=== PATIENT | male | born 1950 | race Caucasian/White ===

== ENCOUNTER 2016-07-12 16:49 | Inpatient (IN) ==
--- NOTE | 2016-07-12 17:45 | Emergency Department Note ---
Disposition Clinical Impression: Cholecystitis Disposition: Admitted As Inpatient Condition: Good [facility] - Forms: Work/School Release, ED Satisfaction Letter Time of Disposition: 18:48 Abdominal Pain HPI - General Chief Complaint: ED Abdominal Pain Stated Complaint: abd pain Time Seen by Provider: 07/12/16 17:27 Source: patient, EMS Nursing Notes Reviewed: Yes Vital Signs Reviewed: Yes - History of Present Illness HPI Narrative: Five-day history of right upper quadrant pain. Patient reports nausea and vomiting for the first 3 days. He denies any vomiting at this time. He states he did have fever yesterday but denies one today. He has not tried anything to make the pain go away. The pain is constant. He was sent here from the [facility] to them not having ultrasound capabilities. They had him drink oral contrast prior to his discharge from their facility. Pain Scale: 5 - Related Data Allergies Allergy/AdvReac Type Severity Reaction Status Date / Time No Known Allergies Allergy Verified 07/12/16 18:32 All systems ED: reviewed and negative except as stated. Constitutional: Reports: fever (Yesterday but not today.). Denies: chills, weakness Cardiovascular: Denies: chest pain, edema, syncope Respiratory: Denies: cough, dyspnea Gastrointestinal: Reports: abdominal pain (Right upper quadrant), nausea, vomiting (2 days ago) Genitourinary: Reports: other (Weak stream. Chronic). Denies: urgency, dysuria Musculoskeletal: Denies: back pain Integumentary: Denies: rash Neurological: Denies: headache, weakness, numbness Abdominal Pain PMH - Past Medical History Medical history: Reports: GERD, hyperlipidemia, hypertension, thyroid disease Psychiatric history: Reports: depression - Social History Smoking status: Current every day smoker Alcohol use: Reports: none Drug use: Reports: none Physical Exam - General Limitations: no limitations General appearance: alert, in no apparent distress - Head Head exam: atraumatic, normocephalic, normal inspection - Eye Eye exam: Present: normal appearance, PERRL, EOMI. Absent: scleral icterus - ENT ENT exam: normal exam, normal oropharynx, mucous membranes moist - Neck Neck exam: Present: normal inspection, full ROM, trachea midline - Chest Chest inspection: Present: normal inspection, symmetric chest wall rise - Respiratory Respiratory exam: Present: normal lung sounds bilaterally. Absent: respiratory distress - Cardiovascular Cardiovascular exam: Present: regular rate, normal rhythm, normal heart sounds - Abdominal Exam Abdominal exam: Present: soft, tenderness (RUQ), guarding, normal bowel sounds, other (Patient's exam was limited due to patient size and pain.). Absent: distention, rebound, rigidity, organomegaly - Extremities Exam Extremities exam: Present: normal inspection, full ROM, normal capillary refill. Absent: tenderness, pedal edema - Back Exam Back exam: Present: normal inspection, full ROM. Absent: tenderness - Neurological Exam Neurological exam: Present: alert, oriented X3 - Psychiatric Psychiatric exam: Present: normal affect, normal mood - Skin Skin exam: Present: warm, dry, intact, normal color Course Course Narrative: A shimming sent from the [facility] due to right upper quadrant pain. He states his pain has been present for 5 days. He did have nausea and vomiting for the first 3 days. He denies any nausea vomiting at this time. Patient had lab work done at the [facility]. He did have an elevated white count at 17.7, his AST and ALTs were normal as was his lipase. He did drink oral contrast prior to leaving the [facility]. He states he was supposed to have a CT over there at 25. We will perform a CT line is clear. His is any pain medication at this time. He is tender on his right upper quadrant and guards whenever you palpate his right upper quadrant. - Reevaluation(s) Reevaluation #1: Patient's blood pressure decreased into the 80s systolic. Will give patient a liter bolus. He has no complaints with this pressure. Also begin Zosyn due to patient's white count and increased size of gallbladder wall and stranding noted on CT consistent with acute cholecystitis. Time: 18:24 - Consultations Consultation #1: Spoke with Dr. Chaudhry and person. He is accepting PT in stable condition. Time: 18:41 Vital Signs Temperature 97.3 F L 07/12/16 16:53 Pulse Rate 79 07/12/16 16:53 Respiratory Rate 16 07/12/16 16:53 Blood Pressure 99/56 07/12/16 16:53 O2 Sat by Pulse Oximetry 93 L 07/12/16 16:53 Temperature 97.3 F L 07/12/16 16:53 Pulse Rate 70 07/12/16 18:17 Respiratory Rate 16 07/12/16 18:17 Blood Pressure 92/47 07/12/16 18:17 O2 Sat by Pulse Oximetry 94 L 07/12/16 18:17 Oxygen Delivery Oxygen Delivery Room Air Abdominal Pain - Medical Records Medical records reviewed: Yes I reviewed the patient's medical records. - Lab Data Lab results reviewed: Yes I reviewed the patient's lab results. - Radiology Data Radiology results reviewed: Yes I reviewed the patient's radiology results.
[2016-07-12] MEDS ORDERED: 0.9 % Sodium Chloride 1,000 ML IVC ONE (18:20)
[2016-07-12] MEDS ORDERED: Piperacillin/Tazobactam 4.5 GM in D5% in Water (Mini-Bag+) 100 ML IVPB ONE (18:23)
--- NOTE | 2016-07-12 18:39 | Emergency Department Note ---
Disposition Clinical Impression: Cholecystitis Disposition: Admitted As Inpatient Condition: Good General Adult HPI - General Chief complaint: ED Abdominal Pain Stated complaint: abd pain Time Seen by Provider: 07/12/16 17:27 Source: patient, EMS Limitations: no limitations - History of Present Illness Pain Scale: 5 - Related Data Home Medications Medication Instructions Recorded Confirmed Aspirin 81 mg PO DAILY 07/13/16 07/13/16 Carboxymethylcellulose Sodium 1 drop BOTH EYES QID 07/13/16 07/13/16 [Refresh Tears] Cyanocobalamin (Vitamin B-12) 1,000 mcg SL Q48H 07/13/16 07/13/16 [Vitamin B-12] Finasteride [Proscar] 5 mg PO DAILY 07/13/16 07/13/16 Hydrochlorothiazide 25 mg PO DAILY 07/13/16 07/13/16 Lisinopril [Zestril] 40 mg PO DAILY 07/13/16 07/13/16 Omeprazole 20 mg PO DAILY 07/13/16 07/13/16 Simvastatin [Zocor] 10 mg PO HS 07/13/16 07/13/16 Tamsulosin [Flomax] 0.4 mg PO DAILY 07/13/16 07/13/16 Allergies Allergy/AdvReac Type Severity Reaction Status Date / Time No Known Allergies Allergy Verified 07/13/16 13:32 Constitutional: Reports: fever (Yesterday but not today.). Denies: chills, weakness Cardiovascular: Denies: chest pain, edema, syncope Respiratory: Denies: cough, dyspnea Gastrointestinal: Reports: abdominal pain (Right upper quadrant), nausea, vomiting (2 days ago) Genitourinary: Reports: other (Weak stream. Chronic). Denies: urgency, dysuria Musculoskeletal: Denies: back pain Integumentary: Denies: rash Neurological: Denies: headache, weakness, numbness Past Medical History - Past Medical History Medical history: Reports: GERD, hyperlipidemia, hypertension, thyroid disease Psychiatric history: Reports: depression - Social History Smoking Status: Current every day smoker Smokeless Tobacco Status: No Alcohol use: Reports: none Drug use: Reports: none Physical Exam - General Limitations: no limitations General appearance: alert, in no apparent distress Course - Reevaluation(s) Reevaluation #1: I saw the patient with the resident, Dr. Bernal. I also spoke with the NH physician who saw the patient over there and transferred him here. Patient complains of right upper quadrant abdominal pain. He had a 17,000 white count at the NH. Rest of the labs were okay but they are concerned about cholecystitis given the white count and the physical exam. Here in the department the patient is tender in the right upper quadrant. His vital signs had been pretty good although he did have a couple of low blood pressure readings but he rebounded back to the 113 systolic range with only [address] scan done here shows acute cholecystitis. We put a second line and the patient and are giving him some IV fluids and we have ordered antibiotics for him. We will talk to surgery about management of the patient. Disposition will be based on that consultation. Time: 18:39 Vital Signs Temperature 97.3 F L 07/12/16 16:53 Pulse Rate 79 07/12/16 16:53 Respiratory Rate 16 07/12/16 16:53 Blood Pressure 99/56 07/12/16 16:53 O2 Sat by Pulse Oximetry 93 L 07/12/16 16:53 Temperature 97.5 F L 07/13/16 11:54 Pulse Rate 80 07/13/16 11:54 Respiratory Rate 15 07/13/16 11:54 Blood Pressure 111/66 07/13/16 11:54 O2 Sat by Pulse Oximetry 91 L 07/13/16 11:54 Oxygen Delivery Oxygen Delivery Room Air Attestation Statement - Attestation Attestation: I, Dr. Che, examined this patient [id number] and my medical decision- making was reviewed with Dr. Bernal, Resident Physician. I agree with the documented findings, disposition and treatment plan as described except to the extent set forth below. Please see my progress notes for details.
[2016-07-12] MEDS ORDERED: *HR* Promethazine 25 MG/ML VIAL IVP PRN (19:31)
[2016-07-12] MEDS ORDERED: *HR* HYDROmorphone (PF) 1 MG/ML SYRINGE IVP PRN (19:31)
[2016-07-12] MEDS ORDERED: 0.9 % Sodium Chloride 1,000 ML ONE (19:37)
[2016-07-12] MEDS: 0.9 % Sodium Chloride 1,000 ML IVC SCH (19:40)
--- NOTE | 2016-07-12 19:48 | General Surg History&Physical ---
Date of Encounter: 07/12/16 Time of Encounter: 09:20 History of Present Illness Chief complaint: Acute abdominal pain, acute cholecystitis HPI: Mr. Antonio is a 66 year old male transferred from [facility] urgent care after presenting there with a 5 day history of right upper quadrant abdominal pain with nausea and vomiting. Symptoms became particularly acute in the last 48 hours. Patient presented to the [facility] today in acute distress opting urgent referral to [facility]. Laboratories her white count is 17.7, hemoglobin 15.8, hematocrit 45.9 bilirubin 1.1, alkaline phosphatase 126; other LFTs were normal. CT Completed on arrival, [facility], rolled mild bilateral lung base atelectasis and right middle lobe; diffuse gallbladder wall thickening and mild distention. No calcified stones are seen but significant pericholecystic trending is noted. A duodenal diverticulum is also noted without obvious inflammation. Since arrival in the emergency department the patient has been hypotensive which has responded to IV fluid boluses. Patient has been acutely referred to surgical services for further assessment and intervention Past medical history: Thyroid nodule/goiter; multiple pulmonary nodules of uncertain etiology; depression; hyperlipidemia, hypertension, gastroesophageal reflux disease; prostate enlargement Surgical history: The denies any prior surgeries Allergies: No known drug allergies Medications: Aspirin 81 mg by mouth daily Carboxymethylcellulose 1% ophthalmic gel and drop both eyes 4 times a day for dry eyes Cobalamin 1000 g by mouth every other day Finasteride 5 mg 1 by mouth daily Hydrochlorothiazide 25 mg 1 by mouth daily Lisinopril 40 mg 1 by mouth daily Omeprazole 20 mg 1 by mouth daily Simvastatin 20 mg half tablet daily at bedtime Tamsulosin 0.4 mg 1 by mouth daily at bedtime Social history: is a former smoker; he admits to 2-3 packs per day for over 40 years; he quit approximately 5 years ago. [place] also admits to a history of heavy alcohol use but quit many years ago. He denies any illicit drug use Family history: Noncontributory Physical examination: Elderly who appears older than his stated age, seated comfortably in his hospital bed. He is guarding and readily admits to severe right upper quadrant abdominal tenderness. The patient is afebrile, 97.3 ; pulse 73, respirations 16, blood pressure currently 102/51 but has been as low as 92/47. SPO2 on room air 93-98%. Skin is warm, dry; there was no obvious jaundice Lungs: Clear though inspiratory effort limited by pain on deep inspiration Cardiac: Regular rate, no appreciable murmurs Abdomen: Acutely tender with guarding right upper quadrant. The abdominal guarding limits my examination. The other 3 quadrants without palpable masses or tenderness. No obvious rebound. Bowel sounds hypoactive Extremities: No obvious clubbing cyanosis or edema Impression: 66-year-old referred from [facility] urgent care for further evaluation and treatment of acute right upper quadrant abdominal pain, nausea and vomiting. Patient has radiologic evidence of acute cholecystitis. The patient will be admitted in preparation for surgery in the a.m. Tonight, IV fluids and IV antibiotics will be administered along with pain medication. Aggressive fluid resuscitation and a be necessary, as evident in the emergency department. Once stabilized I plan surgery in the a.m. The patient is a reasonable candidate for laparoscopic cholecystectomy but understands that open cholecystectomy may become necessary. Risks of surgery include hemorrhage, infection, intra-abdominal abscess, bile leak, injury to adjacent ducts, vessels , organs, bowel. Possible respiratory failure/hypoxia/pneumonia as a result of the acute inflammatory changes involving the gallbladder. There are cardiac risks as well. Postcholecystectomy diarrhea is also a possibility. The expressed understanding and is willing to proceed. Consent for surgery has been obtained. Past Med Surg Social Fam HX - Past Medical History Medical history: GERD, hyperlipidemia, hypertension, thyroid disease Psychiatric history: depression - Social History Smoking Status: Current every day smoker Smokeless Tobacco Status: No Alcohol use: none Drug use: none Medications and Allergies Allergies No Known Allergies Allergy (Verified 07/12/16 18:32) Review of Systems All systems PM: A 10-system review of systems was performed and is negative for pertinent findings except as documented above in the HPI. General Surgery Exam Initial Vital Signs Temp Pulse Resp BP Pulse Ox 97.3 F L 79 16 99/56 93 L 07/12/16 16:53 07/12/16 16:53 07/12/16 16:53 07/12/16 16:53 07/12/16 16:53 Results - Labs All other labs normal.
[2016-07-13] MEDS: Piperacillin/Tazobactam 3.375 GM in D5% in Water (Mini-Bag+) 100 ML IVPB SCH ×3 (00:03→23:28)
[2016-07-13] MEDS: 0.9 % Sodium Chloride 1,000 ML IVC SCH ×2 (05:52→20:05)
--- NOTE | 2016-07-13 14:40 | Anesthesia Evaluation PreOp ---
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 History: Other (depression, 03/13: bilat carotid, nonstenotic plaque) Other Medical History: Thyroid (nodule), GERD, Other (bph) Alcohol Use: none Drug use: none Medications and Allergies Aspirin 81 mg PO DAILY 07/13/16 [History] Carboxymethylcellulose Sodium [Refresh Tears] 1 drop BOTH EYES QID 07/13/16 [ History] Cyanocobalamin (Vitamin B-12) [Vitamin B-12] 1,000 mcg SL Q48H 07/13/16 [History ] Finasteride [Proscar] 5 mg PO DAILY 07/13/16 [History] Hydrochlorothiazide 25 mg PO DAILY 07/13/16 [History] Lisinopril [Zestril] 40 mg PO DAILY 07/13/16 [History] Omeprazole 20 mg PO DAILY 07/13/16 [History] Simvastatin [Zocor] 10 mg PO HS 07/13/16 [History] Tamsulosin [Flomax] 0.4 mg PO DAILY 07/13/16 [History] Allergies No Known Allergies Allergy (Verified 07/13/16 13:32) - Meds/Allergy Pre-op Review Medications Reviewed: Yes Allergies Reviewed: Yes Beta Blockers on Current Med List: No Anesthesia Exam Vital Signs/O2 Sat/Glucose, Most Current Temp Pulse Resp BP Pulse Ox 07/13/16 11:54 97.5 F L 80 15 111/66 91 L Height: 1.73 Weight: 91 NPO (# of Hours): >8 <Robert Triplett - Last Filed: 07/13/16 15:24> - Past History Pulmonary History: Smoker (quit 5 years ago, smoked for 40 years) 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 GALVANIZER History: TIA Anesthesia History: Past Anesthesia, Problems (PONV) Alcohol Use: none (quit 15 years ago, history of heavy use) Anesthesia Results - Labs 07/12/2016 Na 138 K 3.4 BUN 33 Cr 1.02 WBC 17.7 HGB 15.8 HCT 45.9 PLT 177 - Imaging Additional studies: 03/28/2015 Echo LVEF 60% mild LV diastolic dysfunction no significant valvular dysfunction Anesthesia Exam Pain Scale: 3 Pain Scale Used: Numeric (1 - 10) - HEENT Pupil (Motor): EOMI Mallampati: II Denture Type: Upper: Complete Oral Opening: Greater than 3 - STRAND GALVANIZER LOC: Oriented STRAND GALVANIZER Motor: Normal RUE, Normal LUE, Normal RLE, Normal LLE, Normal Face STRAND GALVANIZER Sensory: Normal: RUE, LUE, RLE, LLE, Face - Cardiac Rhythm: Regular Murmur: None - Pulmonary Breath Sounds: bilateral Clear Respiratory Effort: Symmetrical Anesthesia Assess/Plan ASA Score: 3 Modified [place] Scale for Level of Consciousness: Cooperative, oriented, and tranquil Anesthetic Plan: General Monitoring Plan: Standard Monitors Recovery Plan: PACU
[2016-07-13] MEDS ORDERED: Bupivacaine/EPI 1:200k 0.25%PF 30 ML VIAL ONE ×2 (14:49→16:13)
[2016-07-13] MEDS ORDERED: *HR* FentaNYL (PF) 100 MCG/2 ML VIAL ONE (15:05)
[2016-07-13] MEDS ORDERED: *HR* Succinylcholine 200 MG/10 ML VIAL IVP ONE (15:05)
[2016-07-13] MEDS ORDERED: *HR* Rocuronium Bromide 50 MG/5 ML VIAL ONE (15:05)
[2016-07-13] MEDS ORDERED: *HR* Propofol 200 MG/20 ML VIAL IVP ONE (15:05)
[2016-07-13] MEDS ORDERED: *HR* HYDROmorphone (PF) 1 MG/ML SYRINGE IVP PRN ×2 (15:54→18:17)
[2016-07-13] MEDS ORDERED: *HR* HYDROmorphone 2 MG/ML SYRINGE ONE (17:14)
[2016-07-13] MEDS ORDERED: Dexamethasone 4 MG/ML VIAL ONE (17:17)
[2016-07-13] MEDS ORDERED: Ondansetron 4 MG/2 ML VIAL ONE (17:17)
[2016-07-13] MEDS ORDERED: Ringers Solution, Lactated 500 ML IVC ONE (17:31)
--- NOTE | 2016-07-13 17:34 | Operative Note ---
Date of procedure: 07/13/16 Pre-op diagnosis: acute cholecystitis Post-op diagnosis: other (acute gangrenous cholecystitis) Procedure: Laparoscopy, open cholecystectomy Implants: 7 mm Dennys-Naqvi drain Complications: None apparent Anesthesia: GETA Local Anesthetics: 0.25% Sensorcaine HCL with Epinephrine 1:200,000 SubQ (cc) ( 50 mL) Surgeon: Santos Chaudhry Estimated blood loss (cc): 400 IV fluids (cc): 2,500 Specimen: gallbladder Condition: stable Disposition: PACU Procedure in Detail: The patient was brought to the operating room where he was placed supine upon the operating table. The patient was appropriately identified as to person and procedure. The accuracy of this information was confirmed by the patient and the procedure team. The patient was then intubated and anesthetized under the supervision of Dr. Robert Triplett. The wound was prepped and draped in usual sterile fashion. The gallbladder was not palpable. Several milliliters of 0.25 % bupivacaine with 1 200,000 epinephrine was infiltrated into the infraumbilical skin. A small transverse incision was made with dissection carried to the fascia. The fascia was grasped and elevated. Additional bupivacaine with epinephrine was infiltrated before the fascia was incised. An 11 mm Xcel was established. The rigid laparoscope was placed within the obturator to visualize passage through the layers of the anterior abdominal wall. When the abdominal cavity was accessed, the obturator was replaced by the rigid laparoscope and the abdomen was insufflated with gaseous carbon dioxide. No obvious visible injury from established in the port. Under direct visualization 3 additional ports were placed along the costal margin in the subxiphoid, midclavicular, and anterior axillary line. Each site was infiltrated with bupivacaine with epinephrine solution. The omentum was adherent to the gallbladder and liver, extending cephalad onto the dome of the liver. The omentum was mobilized but the gallbladder was acutely inflamed and gangrenous. Purulent fluid was also encountered as the omentum was mobilized. These findings prompted me to abandon the laparoscopic approach. A subcostal incision was made after infiltrating the proposed incision site with several milliliters of 0.25% bupivacaine with epinephrine. The incision was extended through the subcutaneous tissue. Bleeding points were controlled with electrocautery. The anterior sheath of the right rectus abdominis was incised, the right rectus abdominis muscle divided with the aid of electrocautery. The posterior rectus sheath was grasped and elevated, the abdomen entered atraumatically. Exposure was facilitated with a self-retaining Omni tract retractor. Purulent fluid was again encountered, aerobic and anaerobic cultures were obtained. The gallbladder was then dissected in a retrograde fashion. The gallbladder wall was markedly thickened with pus within the gallbladder wall. Dissection was carried down to the cystic artery which was clipped twice and divided. The cystic duct was identified, skeletonize and clipped twice. The cystic duct was then transected. Bleeding from the liver bed was controlled with lap sponges and compression. The gallbladder was removed and sent to pathology for analysis. No gallstones were evident during the dissection. Once hemostasis was achieved, a 7 mm Dennys-Naqvi drain was placed in the gallbladder fossa and exited through the port site placed in the anterior axillary line. The drain was secured to the abdominal skin with 3-0 silk. Liver bed was inspected for adequate hemostasis and then the abdominal closure was completed. The infraumbilical fascia was closed with interrupted figure-of- eight of 0 Vicryl, with a gloved hand placed intra-abdominally. A subcostal incision was closed in layers, posterior rectus sheath and peritoneum were closed with running interlocking 0 Vicryl. Several milliliters of 0.25% bupivacaine with 1-200,000 epinephrine was infiltrated into this fascial layer. The anterior rectus sheath was reapproximated with interrupted figure-of- eight 0 Vicryl. Additional bupivacaine with epinephrine was infiltrated into this fascial layer. The subcutaneous tissue was approximated with running 3-0 Vicryl. Skin edges were approximated with celine. Sterile dressings were applied. The patient was taken to recovery in stable condition. Needle, sponge , and instrument counts were correct at the close of the case. Total volume of 0.25% bupivacaine with 1-200,000 epinephrine used during this procedure, 50 mL.
[2016-07-13] MEDS ORDERED: Ringers Solution, Lactated 1,000 ML ONE (17:39)
--- NOTE | 2016-07-13 17:55 | Anesthesia Evaluation Post Op ---
Date of Encounter: 07/13/16 Time of Encounter: 17:54 - Vital Signs Vital Signs: Vital Signs/O2 Sat, Most Current Temp Pulse Resp BP Pulse Ox 101 F H 89 20 134/67 100 07/13/16 17:25 07/13/16 17:45 07/13/16 17:45 07/13/16 17:45 07/13/16 17:45 - Lungs Lungs: Clear Ascult./Percussion - Airway Airway: Non-obstructed - Cardiovascular Regular Rate - Mental Status Mental Status: Alert & Oriented, Answers Appropriately - Pain Pain Scale: 2 Pain Scale used: Numeric (1 - 10) - Nausea Vomiting Nausea Vomiting: Not Present - Hydration Hydration: NPO, Has not voided - Discharge PostOp Status: Transfer Patient to floor
[2016-07-13] MEDS ORDERED: *HR* Promethazine 25 MG/ML VIAL IVP PRN (18:17)
[2016-07-13] MEDS: *HR* OxyCODONE/APAP 5/325 TABLET PO PRN (22:34)
[2016-07-13] MEDS: Albuterol 2.5 MG/3 ML NEBULIZER IH SCH (23:10)
[2016-07-13] MEDS: Carboxymethylcellulose Sodium [Refresh Tears] OP SCH (23:27)
[2016-07-14] MEDS: Albuterol 2.5 MG/3 ML NEBULIZER IH SCH ×4 (04:35→21:09)
[2016-07-14 06:07] LABS: Basophils % 0.1 %; Hematocrit 39.3 % (37.5-50.1); Hemoglobin 13.1 g/dL (12.9-16.9); Immature Granulocytes % 0.7 % (0-4); Lymphocytes # 0.7 K/mcL (0.6-4.6); Lymphocytes % 4.3 %; Mean Corpuscular HGB Conc 33.3 g/dL (31.6-35.5); Mean Corpuscular Hemoglobin 29.1 pg (28.0-33.3); Mean Corpuscular Volume 87.3 fL (83.0-100.0); Mean Platelet Volume 11.2 fL (9.4-12.4); Monocytes # 1.3 K/mcL (0.0-1.3); Monocytes % 8.5 %; Neutrophils # 13.1 K/mcL (1.6-8.9); Platelet Count 188 K/mcL (140-400); Red Cell Distribution Width 13.8 % (11.5-14.5); Segmented Neutrophils % 86.4 %
[2016-07-14 06:20] LABS: Alanine Aminotransferase 58 Units/L (0-55); Albumin/Globulin Ratio 0.5 (1.1-2.2); Alkaline Phosphatase 100 Units/L (38-126); Aspartate Amino Transferase 53 Units/L (5-34); BUN/Creatinine Ratio 31 (6-26); Bilirubin,Total 0.7 mg/dL (0.2-1.2); Blood Urea Nitrogen 22 mg/dL (8-26); Calcium 9.1 mg/dL (8.6-10.8); Carbon Dioxide 28 mEq/L (19-29); Chloride 106 mEq/L (98-109); Glucose 128 mg/dL (70-99); Osmolality,Calculated 301 (280-300); Potassium 3.7 mEq/L (3.5-4.5); Sodium 143 mEq/L (136-145); Total Protein 5.8 g/dL (6.0-8.3); eGFR For African Americans > 60 (> 60); eGFR For Non-African Americans > 60 (> 60)
[2016-07-14 06:22] LABS: Albumin 1.8 g/dL (3.5-5.0)
[2016-07-14 06:53] LABS: Hypersegmented Neutrophils Present (Not Present); Platelet Estimate Normal (Normal); Toxic Granulation Present (Not Present)
[2016-07-14] MEDS: Finasteride 5 MG TABLET PO SCH (09:02)
[2016-07-14] MEDS: *HR* OxyCODONE/APAP 5/325 TABLET PO PRN ×2 (09:02→17:30)
[2016-07-14] MEDS: Carboxymethylcellulose Sodium [Refresh Tears] OP SCH ×4 (09:03→20:07)
[2016-07-14] MEDS: Piperacillin/Tazobactam 3.375 GM in D5% in Water (Mini-Bag+) 100 ML IVPB SCH ×2 (09:03→17:30)
[2016-07-14] MEDS: 0.9 % Sodium Chloride 1,000 ML IVC SCH (09:05)
[2016-07-14] MEDS ORDERED: *HR* HYDROmorphone (PF) 1 MG/ML SYRINGE IVP PRN (11:26)
--- NOTE | 2016-07-14 11:47 | General Surgery Progress Note ---
Date of Encounter: 07/14/16 Time of Encounter: 11:20 Subjective Patient reports: still having pain, pain is less, tolerating a regular diet Narrative: Postoperative day 1: Status post laparoscopy converted to open cholecystectomy. Patient complaining of incisional pain but overall status is improved. The acute abdominal pain with which the patient presented, is resolved. The patient is tolerating a regular diet, he denies any nausea, vomiting. The patient is afebrile, pulse 83, respirations 18, blood pressure 110/69 ( history of hypertension - the patient's routine antihypertensives have been held ) Lungs: Clear; adequate inspiratory effort. Cardiac: Regular rate, no appreciable murmurs Abdomen: Soft, incisional tenderness as expected but incisions clean and dry. Dressings have been removed. Active bowel sounds. ALEN: 45 mL sanguineous fluid for calendar day 07/13/16; 40 mL so far today - will maintain in situ for now. Extremities no obvious clubbing cyanosis or edema Laboratories: White count 15.2, hemoglobin 13.1, hematocrit 39.3; platelet count 188,000. Electrolytes within normal limits, BUN 22, creatinine 0.70. Total bilirubin 0.7; AST 53, ALT 58, alkaline phosphatase 100 Impression: Postoperative day 1, daily gangrenous cholecystitis. Pathology pending. Acceptable postoperative state. Hypertension - patient with clinically normal blood pressure but with a history of hypertension he is technically hypotensive. Continue to hold antihypertensives. Prostate enlargement - no obstructive uropathy History of depression - stable Objective Vital Signs - Last 8 Hours Temp Pulse Resp BP Pulse Ox 07/14/16 10:31 18 95 07/14/16 09:00 93 L 07/14/16 06:43 98.1 F 83 18 110/69 93 L 07/14/16 04:35 20 93 L Intake and Output 07/13/16 07/14/16 07/14/16 23:59 07:59 15:59 Intake Total 500 / 500 1000 / 1000 Output Total 945 / 945 370 / 370 20 / 20 Balance -945 / -945 130 / 130 980 / 980 Intake: IV Fluids 100 / 100 1000 / 1000 0.9 % Sodium Chloride 1, 1000 / 1000 000 ML @ 80 mls/hr IVC . [id number] [facility] Rx#: [id number] Zosyn 3.375 GM In 100 / 100 Dextrose 5% (Minibag+) 100 ML 100 ML @ 25 mls/hr IVPB Q8HR [facility] Rx#: [id number] Oral 400 / 400 Output: Urine 500 / 500 350 / 350 Estimated Blood Loss 400 / 400 Wound Drainage R lateral Other: Weight 92.731 kg Patient Weight 07/14/16 23:59 Weight 92.731 kg - Labs 07/14/16 05:39 07/14/16 05:39 Diabetes panel 07/14/16 Range/Units 05:39 Sodium 143 (136-145) mEq/L Potassium 3.7 (3.5-4.5) mEq/L Chloride 106 (98-109) mEq/L Carbon Dioxide 28 (19-29) mEq/L BUN 22 (8-26) mg/dL Creatinine 0.70 L (0.72-1.25) mg/dL Glucose 128 H (70-99) mg/dL Calcium 9.1 (8.6-10.8) mg/dL AST 53 H (5-34) Units/L ALT 58 H (0-55) Units/L Alkaline Phosphatase 100 (38-126) Units/L Albumin 1.8 L (3.5-5.0) g/dL Calcium panel 07/14/16 Range/Units 05:39 Calcium 9.1 (8.6-10.8) mg/dL Albumin 1.8 L (3.5-5.0) g/dL Pituitary panel 07/14/16 Range/Units 05:39 Sodium 143 (136-145) mEq/L Potassium 3.7 (3.5-4.5) mEq/L Chloride 106 (98-109) mEq/L Carbon Dioxide 28 (19-29) mEq/L BUN 22 (8-26) mg/dL Creatinine 0.70 L (0.72-1.25) mg/dL Glucose 128 H (70-99) mg/dL Calcium 9.1 (8.6-10.8) mg/dL Adrenal panel 07/14/16 Range/Units 05:39 Sodium 143 (136-145) mEq/L Potassium 3.7 (3.5-4.5) mEq/L Chloride 106 (98-109) mEq/L Carbon Dioxide 28 (19-29) mEq/L BUN 22 (8-26) mg/dL Creatinine 0.70 L (0.72-1.25) mg/dL Glucose 128 H (70-99) mg/dL Calcium 9.1 (8.6-10.8) mg/dL Total Bilirubin 0.7 (0.2-1.2) mg/dL AST 53 H (5-34) Units/L ALT 58 H (0-55) Units/L Alkaline Phosphatase 100 (38-126) Units/L Albumin 1.8 L (3.5-5.0) g/dL - VTE Documentation of Mechanical Device: Intermittent pneumatic compression device Consult Discharge Plan - Plan Referrals: Santos Chaudhry MD [Non-Partnered Physician] -
[2016-07-14] MEDS: Aspirin 81 MG TAB.CHEW PO SCH (12:01)
[2016-07-15] MEDS: Piperacillin/Tazobactam 3.375 GM in D5% in Water (Mini-Bag+) 100 ML IVPB SCH ×5 (01:49→23:57)
[2016-07-15] MEDS: Albuterol 2.5 MG/3 ML NEBULIZER IH SCH ×4 (04:23→22:38)
[2016-07-15] MEDS: 0.9 % Sodium Chloride 1,000 ML IVC SCH (07:23)
[2016-07-15] MEDS: Finasteride 5 MG TABLET PO SCH (09:32)
[2016-07-15] MEDS: Aspirin 81 MG TAB.CHEW PO SCH (09:32)
[2016-07-15] MEDS: Carboxymethylcellulose Sodium [Refresh Tears] OP SCH ×4 (09:34→20:20)
[2016-07-15] MEDS: Acetaminophen 325 MG TABLET PO PRN (16:28)
--- NOTE | 2016-07-15 17:33 | General Surgery Progress Note ---
Date of Encounter: 07/15/16 Time of Encounter: 17:25 Subjective Patient reports: still having pain, tolerating a regular diet Narrative: Postoperative day 2: Patient still complaining of pain but has been reluctant to take any pain medication. Nursing has finally convinced patient to take 2 Tylenol. The issue of the patient's pain has been discussed with the patient and his family in attendance. Pain medication will allow the patient to deep breathe and cough more effectively well as being more active out of bed which will promote his continued recovery The patient remains afebrile, 98.1; pulse 85; respirations 16; blood pressure 144/83. SPO2 91-92% The patient was seated at bedside during my postoperative visit. He is diaphoretic but denies any acute distress Lungs: Clear to auscultation with adequate inspiratory effort Abdomen: Soft with incisional tenderness. Active bowel sounds. Oral intake satisfactory Incisions clean and dry. ALEN output 50 mL for calendar day 07/14/16; 35 mL today Intraoperative cultures (pericholecystic fluid and pus) - 2 different species gram-negative rods; final ID and sensitivity pending Impression: Postoperative day 2, status post laparoscopy converted to open cholecystectomy. Acute gangrenous cholecystitis - pathology still pending. Acceptable postoperative status. Hypertension - blood pressure appears to be increasing, most likely approaching baseline, we will resume antihypertensives Plan: Continue IV antibiotics pending operative culture results Resume oral antihypertensives Continue incentive spirometry and pulmonary toilet including aerosol therapy Check labs in a.m. Objective Vital Signs - Last 8 Hours Temp Pulse Resp BP Pulse Ox 07/15/16 14:38 98.1 F 85 16 144/83 91 L 07/15/16 11:34 97.9 F 82 18 146/77 92 L 07/15/16 10:38 14 97 Intake and Output 07/15/16 07/15/16 07/15/16 07:59 15:59 23:59 Intake Total 100 / 100 520 / 520 Output Total 220 / 220 Balance -120 / -120 505 / 505 Intake: IV Fluids 100 / 100 100 / 100 Zosyn 3.375 GM In 100 / 100 100 / 100 Dextrose 5% (Minibag+) 100 ML 100 ML @ 25 mls/hr IVPB Q8HR [facility] Rx#: [id number] Oral 0 / 0 420 / 420 Output: Urine 200 / 200 0 / 0 Wound Drainage R lateral Other: Meal Lunch Percent of Meal Consumed 50% # Voids 1 Weight 92.788 kg Patient Weight 07/15/16 23:59 Weight 92.788 kg - Labs 07/14/16 05:39 07/14/16 05:39 - VTE Documentation of Mechanical Device: Intermittent pneumatic compression device Consult Discharge Plan - Plan Referrals: Santos Chaudhry MD [Non-Partnered Physician] -
[2016-07-15] MEDS: Lisinopril 20 MG TABLET PO SCH (18:04)
[2016-07-15] MEDS: *HR* OxyCODONE/APAP 5/325 TABLET PO PRN (18:07)
[2016-07-16] MEDS: Acetaminophen 325 MG TABLET PO PRN (03:57)
[2016-07-16] MEDS: Albuterol 2.5 MG/3 ML NEBULIZER IH SCH ×2 (04:57→10:09)
[2016-07-16 06:17] LABS: Eosinophils # 0.2 K/mcL (0.0-0.6); Hematocrit 36.1 % (37.5-50.1); Hemoglobin 12.2 g/dL (12.9-16.9); Mean Corpuscular HGB Conc 33.8 g/dL (31.6-35.5); Mean Corpuscular Hemoglobin 28.8 pg (28.0-33.3); Mean Corpuscular Volume 85.3 fL (83.0-100.0); Mean Platelet Volume 10.4 fL (9.4-12.4); Platelet Count 271 K/mcL (140-400); Red Blood Count 4.23 M/mcL (4.19-5.50); Red Cell Distribution Width 13.5 % (11.5-14.5)
[2016-07-16 06:32] LABS: Alanine Aminotransferase 41 Units/L (0-55); Albumin/Globulin Ratio 0.5 (1.1-2.2); Alkaline Phosphatase 84 Units/L (38-126); Aspartate Amino Transferase 28 Units/L (5-34); BUN/Creatinine Ratio 17 (6-26); Bilirubin,Total 0.8 mg/dL (0.2-1.2); Calcium 8.6 mg/dL (8.6-10.8); Carbon Dioxide 29 mEq/L (19-29); Chloride 106 mEq/L (98-109); Globulin 3.7 g/dL (2.4-3.5); Glucose 126 mg/dL (70-99); Osmolality,Calculated 297 (280-300); Sodium 143 mEq/L (136-145); Total Protein 5.5 g/dL (6.0-8.3); eGFR For African Americans > 60 (> 60); eGFR For Non-African Americans > 60 (> 60)
[2016-07-16 06:33] LABS: Albumin 1.8 g/dL (3.5-5.0); Blood Urea Nitrogen 10 mg/dL (8-26)
[2016-07-16 07:12] LABS: Monocytes # 0.7 K/mcL (0.0-1.3); Neutrophils # 8.1 K/mcL (1.6-8.9); Platelet Estimate Normal (Normal); Toxic Granulation Present (Not Present)
[2016-07-16 07:13] LABS: Large Platelets Present (Not Present); Macrocytosis Present (Not Present); Polychromasia 1+ (Not Present)
--- NOTE | 2016-07-16 07:34 | History & Physical Report ---
Date of Encounter: 07/16/16 Time of Encounter: 07:30 24 Hour HP Update - Instructions Instructions: If the History and Physical is less than 30 days old and was completed prior to A.M. admission and or procedure and has NOT been updated on calendar day of procedure please complete this update prior to performing procedure. - Update Patient reports changes in Medical Condition: No Changes in assessment/condition: No Changes in Medication: No Preop tests/diagnostics Reviewed: Yes Surgery Remains Indicated: Yes Consent for Planned Operative Procedure(s) Verified: Yes - Pre-Operative Checklist Preoperative Checklist Indicated: No
[2016-07-16] MEDS: Piperacillin/Tazobactam 3.375 GM in D5% in Water (Mini-Bag+) 100 ML IVPB SCH (08:11)
[2016-07-16] MEDS: Aspirin 81 MG TAB.CHEW PO SCH (08:12)
[2016-07-16] MEDS: Finasteride 5 MG TABLET PO SCH (08:13)
[2016-07-16] MEDS: Carboxymethylcellulose Sodium [Refresh Tears] OP SCH ×2 (08:13→12:02)
[2016-07-16] MEDS: Lisinopril 20 MG TABLET PO SCH (08:14)
[2016-07-16] MEDS ORDERED: hydroCHLOROthiazide 25 MG TABLET PO SCH (09:00)
[2016-07-16] MEDS: *HR* OxyCODONE/APAP 5/325 TABLET PO PRN (09:11)
[2016-07-16 11:44] VITALS: BP 110/63
--- NOTE | 2016-07-16 12:13 | General Surgery Progress Note ---
Date of Encounter: 07/16/16 Time of Encounter: 11:45 Subjective Patient reports: feels better, tolerating a regular diet Narrative: General Surgery POD # 3 / discharge summary Patient feeling much improved; tolerating diet; denies diarrhea afebrile, 98.2; pulse 80, respiratory rate 17, blood pressure 110/63 ( overnight 153/72) SPO2 on room air 93-94% Lungs: Clear to auscultation with effective inspiratory effort Abdomen: Soft with minimal incisional tenderness. Incisions clean and dry. Active bowel sounds ALEN output approximately 30 mL serous fluid overnight, drain removed Extremities: No obvious clubbing cyanosis or edema Laboratories: White count 11.0, hemoglobin 12.2 with hematocrit 36.1; platelet count 271,000 Electrolytes, BUN, creatinine - potassium 3.0 other values within normal limits LFTs have returned to normal Operative cultures - pansensitive Escherichia coli and Klebsiella pneumonia Impression/Plan: Acute gangrenous cholecystitis - status post laparoscopy converted to open cholecystectomy, 07/13/16. Intraoperative cultureS showing and sensitive Escherichia coli and Klebsiella pneumonia Acceptable postoperative recovery; discharge home post op hypokalemia - oral supplementation provided this AM mild post op anemia - likely due to hydration and julia operative fluids administered for hypotension Hypertension Hyperlipidemia History of depression Thyroid nodule/goiter History of multiple pulmonary nodules of uncertain etiology Gastroesophageal reflux Continue antibiotics to complete 1 week duration of treatment - ciprofloxacin 500 mg by mouth twice a day will be prescribed x 4 days Patient may shower, wash incisions with soap and water Activity as tolerated, lifting limited to less than 20 pounds Patient to resume home meds Tylenol, ibuprofen, Motrin, Advil, etc. as needed for pain Hospital course: 66-year-old transferred from [facility] urgent care, , after presenting there with a 5 day history of right upper quadrant abdominal pain, nausea and vomiting. The patient had acute symptoms if leukocytosis and elevated LFTs. Imaging showed views gallbladder wall thickening with mild distention and pericholecystic fluid. The clinical exam and radiologic findings were consistent with acute cholecystitis. On initial arrival [facility] ED, the patient demonstrated moderate hemodynamic instability / hypotension which responded to fluid boluses. The was admitted, with continued IV fluids and IV boluses as needed and once medically stabilized taken to surgery. Laparoscopy with conversion to open cholecystectomy was completed, 07/13/2016. The patient tolerated the surgery well and over the next several days recovered without difficulty. The pre op hypotension resolved and patient returned to baseline. He was discharged home in good physical condition, 07/16/16, postoperative day 3. At the time of discharge, the was afebrile, tolerating a regular diet, the preoperative leukocytosis and abnormal LFTs had returned to normal. Pain was controlled. Objective Vital Signs - Last 8 Hours Temp Pulse Resp BP Pulse Ox 07/16/16 11:43 98.2 F 80 17 110/63 94 L 07/16/16 07:25 98.2 F 72 14 153/72 93 L 07/16/16 04:57 18 90 L 07/16/16 04:12 98.1 F 77 16 167/82 93 L Intake and Output 07/15/16 07/16/16 07/16/16 23:59 07:59 15:59 Intake Total 340 / 340 300 / 300 360 / 360 Output Total 0 / 0 505 / 505 0 / 0 Balance 340 / 340 -205 / -205 360 / 360 Intake: IV Fluids 100 / 100 100 / 100 Zosyn 3.375 GM In 100 / 100 100 / 100 Dextrose 5% (Minibag+) 100 ML 100 ML @ 25 mls/hr IVPB Q8HR [facility] Rx#: [id number] Oral 240 / 240 200 / 200 360 / 360 Output: Urine 0 / 0 475 / 475 0 / 0 Wound Drainage 0 / 0 30 / 30 0 / 0 R lateral 0 / 0 30 / 30 0 / 0 Other: Meal Dinner Breakfast Percent of Meal Consumed 100% 100% Weight 93.213 kg Patient Weight 07/16/16 23:59 Weight 93.213 kg - Labs 07/16/16 05:41 07/16/16 05:41 Diabetes panel 07/16/16 Range/Units 05:41 Sodium 143 (136-145) mEq/L Potassium 3.0 L (3.5-4.5) mEq/L Chloride 106 (98-109) mEq/L Carbon Dioxide 29 (19-29) mEq/L BUN 10 D (8-26) mg/dL Creatinine 0.60 L (0.72-1.25) mg/dL Glucose 126 H (70-99) mg/dL Calcium 8.6 (8.6-10.8) mg/dL AST 28 (5-34) Units/L ALT 41 (0-55) Units/L Alkaline Phosphatase 84 (38-126) Units/L Albumin 1.8 L (3.5-5.0) g/dL Calcium panel 07/16/16 Range/Units 05:41 Calcium 8.6 (8.6-10.8) mg/dL Albumin 1.8 L (3.5-5.0) g/dL Pituitary panel 07/16/16 Range/Units 05:41 Sodium 143 (136-145) mEq/L Potassium 3.0 L (3.5-4.5) mEq/L Chloride 106 (98-109) mEq/L Carbon Dioxide 29 (19-29) mEq/L BUN 10 D (8-26) mg/dL Creatinine 0.60 L (0.72-1.25) mg/dL Glucose 126 H (70-99) mg/dL Calcium 8.6 (8.6-10.8) mg/dL Adrenal panel 07/16/16 Range/Units 05:41 Sodium 143 (136-145) mEq/L Potassium 3.0 L (3.5-4.5) mEq/L Chloride 106 (98-109) mEq/L Carbon Dioxide 29 (19-29) mEq/L BUN 10 D (8-26) mg/dL Creatinine 0.60 L (0.72-1.25) mg/dL Glucose 126 H (70-99) mg/dL Calcium 8.6 (8.6-10.8) mg/dL Total Bilirubin 0.8 (0.2-1.2) mg/dL AST 28 (5-34) Units/L ALT 41 (0-55) Units/L Alkaline Phosphatase 84 (38-126) Units/L Albumin 1.8 L (3.5-5.0) g/dL - VTE Documentation of Mechanical Device: Intermittent pneumatic compression device Consult Discharge Plan - Plan Referrals: Santos Chaudhry MD [Non-Partnered Physician] -
--- NOTE | 2016-07-16 12:20 | Discharge Summary ---
Outpatient Proc Discharge Plan - Plan Additional Instructions: Regular diet Patient may shower, wash incisions with soap and water Activity as tolerated; lifting limited to less than 20 pounds Tylenol, ibuprofen, Motrin, Advil, etc. as needed for pain Prescription for ciprofloxacin 500 mg by mouth twice a day 4 days provided Prescription for wheeled walker and allergy are also provided Patient to resume home meds Follow-up my office, 07/16/16. Prescriptions: Ciprofloxacin HCl [Cipro] 500 mg PO BID #8 tablet Home Medications: Aspirin 81 mg PO DAILY 07/13/16 [History] Carboxymethylcellulose Sodium [Refresh Tears] 1 drop BOTH EYES QID 07/13/16 [ History] Cyanocobalamin (Vitamin B-12) [Vitamin B-12] 1,000 mcg SL Q48H 07/13/16 [History ] Finasteride [Proscar] 5 mg PO DAILY 07/13/16 [History] Hydrochlorothiazide 25 mg PO DAILY 07/13/16 [History] Lisinopril [Zestril] 40 mg PO DAILY 07/13/16 [History] Omeprazole 20 mg PO DAILY 07/13/16 [History] Simvastatin [Zocor] 10 mg PO HS 07/13/16 [History] Tamsulosin [Flomax] 0.4 mg PO DAILY 07/13/16 [History] Acetaminophen [Tylenol] 650 mg PO Q6HR PRN #0 tablet 07/16/16 [Rx] Ciprofloxacin HCl [Cipro] 500 mg PO BID #8 tablet 07/16/16 [Rx]
== END 2016-07-16 14:09 | disposition home health service (06) | DRG 415 ==
LOC: 3BNU 16:49 → EMEROO 16:49 → 3BNU 20:30 → 3ANU 07-13 19:31
PROVIDERS: ADMIT Surgery; ATTEND Surgery

== ENCOUNTER 2020-04-15 00:45 | Observation (INO) ==
[2020-04-15] MEDS ORDERED: Ondansetron 4 MG/2 ML VIAL IVP PRN (02:02)
[2020-04-15] MEDS ORDERED: Naloxone 0.4 MG/ML INJ IVP PRN (02:02)
[2020-04-15] MEDS: 0.9 % Sodium Chloride 1,000 ML IVC SCH ×2 (02:52→11:12)
[2020-04-15 04:52] LABS: Basophils % 0.3 %; Eosinophils # 0.1 K/mcL (0.0-0.6); Eosinophils % 0.8 %; Hematocrit 38.6 % (37.5-50.1); Hemoglobin 13.2 g/dL (12.9-16.9); Immature Granulocytes % 0.3 % (0-4); Lymphocytes # 1.9 K/mcL (0.6-4.6); Lymphocytes % 22.4 %; Mean Corpuscular HGB Conc 34.2 g/dL (31.6-35.5); Mean Corpuscular Hemoglobin 29.6 pg (28.0-33.3); Mean Corpuscular Volume 86.5 fL (83.0-100.0); Mean Platelet Volume 10.6 fL (9.4-12.4); Monocytes # 0.6 K/mcL (0.0-1.3); Monocytes % 6.4 %; Platelet Count 267 K/mcL (140-400); Red Blood Count 4.46 M/mcL (4.19-5.50); Red Cell Distribution Width 12.3 % (11.5-14.5); Segmented Neutrophils % 69.8 %; White Blood Count 8.7 K/mcL (4.3-11.1)
[2020-04-15 04:57] LABS: INR 1.2; Prothrombin Time 13.4 Seconds (9.4-12.1)
[2020-04-15 05:12] LABS: Alanine Aminotransferase 7 Units/L (7-52); Albumin 3.5 g/dL (3.5-5.7); Albumin/Globulin Ratio 1.4 (1.1-2.2); Alkaline Phosphatase 57 Units/L (34-104); Aspartate Amino Transferase 9 Units/L (13-39); BUN/Creatinine Ratio 22 (6-26); Bilirubin,Total 0.5 mg/dL (0.3-1.0); Blood Urea Nitrogen 16 mg/dL (8-23); Calcium 9.4 mg/dL (8.6-10.3); Carbon Dioxide 25 mEq/L (23-29); Chloride 104 mEq/L (98-107); Globulin 2.5 g/dL (2.4-3.5); Glucose 79 mg/dL (70-105); Magnesium 1.8 mg/dL (1.6-2.6); Osmolality,Calculated 284 (280-300); Phosphorous 2.7 mg/dL (2.7-4.5); Potassium 3.5 mEq/L (3.5-5.1); Sodium 137 mEq/L (136-145); Troponin I < 0.03 ng/mL (< 0.04); eGFR For African Americans > 60 (> 60); eGFR For Non-African Americans > 60 (> 60)
[2020-04-15] MEDS ORDERED: Pantoprazole 40 MG VIAL IVP SCH ×2 (06:00)
[2020-04-15] MEDS: MetroNIDAZOLE 500 MG/100 ML 500 MG/100 ML BAG IVPB SCH ×3 (07:31→23:32)
[2020-04-15] MEDS: lisinopriL 20 MG TABLET PO SCH (17:14)
[2020-04-16 02:17] LABS: Hematocrit 37.2 % (37.5-50.1); Hemoglobin 12.6 g/dL (12.9-16.9); Mean Corpuscular HGB Conc 33.9 g/dL (31.6-35.5); Mean Corpuscular Hemoglobin 29.9 pg (28.0-33.3); Mean Corpuscular Volume 88.4 fL (83.0-100.0); Mean Platelet Volume 9.9 fL (9.4-12.4); Platelet Count 215 K/mcL (140-400); Red Blood Count 4.21 M/mcL (4.19-5.50); Red Cell Distribution Width 12.6 % (11.5-14.5); White Blood Count 7.3 K/mcL (4.3-11.1)
[2020-04-16 02:19] LABS: INR 1.2
[2020-04-16 02:38] LABS: Alanine Aminotransferase 6 Units/L (7-52); Albumin 3.2 g/dL (3.5-5.7); Albumin/Globulin Ratio 1.4 (1.1-2.2); Alkaline Phosphatase 52 Units/L (34-104); Aspartate Amino Transferase 8 Units/L (13-39); BUN/Creatinine Ratio 20 (6-26); Bilirubin,Total 0.5 mg/dL (0.3-1.0); Blood Urea Nitrogen 14 mg/dL (8-23); Calcium 9.1 mg/dL (8.6-10.3); Carbon Dioxide 26 mEq/L (23-29); Chloride 107 mEq/L (98-107); Globulin 2.3 g/dL (2.4-3.5); Glucose 79 mg/dL (70-105); Magnesium 1.9 mg/dL (1.6-2.6); Osmolality,Calculated 287 (280-300); Potassium 3.8 mEq/L (3.5-5.1); Sodium 139 mEq/L (136-145); Total Protein 5.5 g/dL (6.4-8.9); eGFR For African Americans > 60 (> 60); eGFR For Non-African Americans > 60 (> 60)
[2020-04-16 07:20] VITALS: BP 146/74
[2020-04-16] MEDS: lisinopriL 20 MG TABLET PO SCH (08:43)
[2020-04-16] MEDS: MetroNIDAZOLE 500 MG/100 ML 500 MG/100 ML BAG IVPB SCH (08:44)
[2020-04-16] MEDS ORDERED: Finasteride 5 MG TABLET PO SCH (09:00)
== END 2020-04-16 15:38 | disposition home or self-care (01) ==
LOC: 2ANU
PROVIDERS: ADMIT Family Medicine; ATTEND Family Medicine